=== PATIENT | female | born 1985 | race Hispanic/Latino ===

== ENCOUNTER 2019-02-14 15:10 | Inpatient (IN) | payer MEDICAID ==
--- NOTE | 2019-02-14 16:43 | ED PDOC ---
HPI: Seizure Time Seen by Provider: 02/14/19 15:56 Chief Complaint (Nursing): Seizure Chief Complaint (Provider): Seizure History Per: Patient History/Exam Limitations: no limitations Recent Seizure Activity Began: Just Before Arrival Number Of Seizures: One Associated Symptoms: denies: Bit Tongue, Incontinence Of Urine, Incontinence Of Stool, Injury As A Result Of Seizure Activity Post-ictal Period: No Additional Complaint(s): 34yo female with history of seizures comes to ER for evaluation after she had an unusual seizure like activity. Patient has a history of seizure and is currently being followed by Dr. Schrader and has been taking medications. Patient states she has been off her medications for 4 days due to a scheduled EEG tomorrow. She states this morning while walking to her apartment, she saw flashing bright "strobe lights." She felt dizzy, could not hear things so she sat on a chair; states symptoms lasted for a couple minutes. She reports she came to and did not have a post-ictal state. Patient is currently on her menstrual period and reports cramping. Otherwise, no neurological complaints at this time. Past Medical History Reviewed: Historical Data, Nursing Documentation, Vital Signs Vital Signs: Last Vital Signs Temp 98.4 F 02/14/19 15:14 Pulse 80 02/14/19 15:14 Resp 16 02/14/19 15:14 BP 120/76 02/14/19 15:14 Pulse Ox 98 02/14/19 15:14 Primary Care Provider: Kylee Snyder - Medical History PMH: Anxiety, Asthma, COPD, Depression, Gastrointestinal Ulcer, Gall Bladder Disease (CHOLECYSTECTOMY.), Pancreatitis, Seizures (grand mal 3 years ago) Denies: Bipolar Disorder, Bronchitis, Diabetes, Emphysema, Hepatitis, HIV, HTN, Personality Disorder, Pneumonia, Chronic Kidney Disease, Schizophrenia, Sexually Transmitted Disease, Sleep Apnea - Surgical History Surgical History: Cholecystectomy - Family History Family History: States: Unknown Family Hx - Social History Current smoker - smoking cessation education provided: No Alcohol: None Drugs: Denies - Immunization History Hx Tetanus Toxoid Vaccination: No Hx Influenza Vaccination: No Hx Pneumococcal Vaccination: No - Home Medications Home Medications: Ambulatory Orders Medication Instructions Recorded Buprenorphine HCl/Naloxone HCl 1.5 tab SL DAILY 12/30/18 [Buprenorphin-Naloxon 8-2 mg Sl] Ondansetron [Zofran] 4 mg PO Q8H PRN #9 tab 04/02/19 Biotin 1 tab PO DAILY 02/14/19 Cyanocobalamin [Vitamin B12] 1 tab PO DAILY 02/14/19 Cyclobenzaprine [Flexeril] 10 mg PO Q8 PRN 02/14/19 Gabapentin 300 mg PO Q8 02/14/19 clonazePAM [Klonopin] 0.5 mg PO Q8 02/14/19 Eslicarbazepine Acetate [Aptiom] 1 tab PO HS #21 tablet 02/17/19 - Allergies Allergies/Adverse Reactions: Allergies Allergy/AdvReac Type Severity Reaction Status Date / Time escitalopram oxalate Allergy RASH Verified 12/30/18 18:41 [From Lexapro] FISH Allergy ANAPHYLAXIS Verified 12/30/18 18:41 levetiracetam [From Keppra] Allergy ANAPHYLAXIS Verified 12/30/18 18:41 Review of Systems ROS Statement: Except As Marked, All Systems Reviewed And Found Negative Eyes: Negative for: Vision Change Gastrointestinal: Negative for: Nausea, Vomiting Neurological: Positive for: Seizures. Negative for: Headache Physical Exam - Reviewed Nursing Documentation Reviewed: Yes Vital Signs Reviewed: Yes - Physical Exam Appears: Positive for: Non-toxic, No Acute Distress Head Exam: Positive for: ATRAUMATIC, NORMAL INSPECTION, NORMOCEPHALIC Skin: Positive for: Normal Color Eye Exam: Positive for: Normal appearance, EOMI, PERRL Neck: Positive for: Supple Cardiovascular/Chest: Positive for: Regular Rate, Rhythm. Negative for: Tachycardia Respiratory: Positive for: Normal Breath Sounds. Negative for: Respiratory Distress Gastrointestinal/Abdominal: Positive for: Normal Exam, Soft Back: Positive for: Normal Inspection Extremity: Positive for: Normal ROM. Negative for: Deformity Neurological/Psych: Positive for: Awake, Alert, Normal Tone, Oriented (x 3), Gait (steady). Negative for: Motor/Sensory Deficits - Laboratory Results Result Diagrams: 02/15/19 04:21 02/15/19 04:21 - ECG O2 Sat by Pulse Oximetry: 98 (RA) Pulse Ox Interpretation: Normal Medical Decision Making Medical Decision Making: Atypical seizure activity [address] Schrader, who states patient was supposed to stop taking her medication for 1 day only Recommends MRI Brain for further evaluation, also recommends admission for further workup and scheduled EEG IV Reglan and IV toradol ordered for abdominal cramps Patient to be admitted under Dr. Anthony Scribe Attestation: Documented by Samreen Ken, acting as a scribe for Viki Parish MD. Provider Scribe Attestation: All medical record entries made by the Scribe were at my direction and personally dictated by me. I have reviewed the chart and agree that the record accurately reflects my personal performance of the history, physical exam, medical decision making, and the department course for this patient. I have also personally directed, reviewed, and agree with the discharge instructions and disposition. Disposition - Clinical Impression Clinical Impression: Seizure disorder - Disposition Disposition Time: 16:10 Condition: STABLE
[2019-02-14] MEDS ORDERED: DiphenhydrAMINE 50 mg/ml Inj IVP STA (17:34)
[2019-02-14 17:39] LABS: BASO % 0.3 % (0.0-2.0); EOS # 0.2 K/uL (0.0-0.7); EOS % 2.7 % (0.0-4.0); HEMOGLOBIN 12.8 g/dL (12.0-16.0); LYMPH # 2.4 K/uL (1.0-4.3); LYMPH % 34.8 % (20.0-40.0); MEAN CELL VOLUME 86.2 fl (81.0-99.0); MEAN CORPUSCULAR HEMOGLOBIN 29.5 pg (27.0-31.0); MEAN CORPUSCULAR HGB CONC 34.2 g/dL (33.0-37.0); MEAN PLATELET VOLUME 9.5 fl (7.2-11.7); MONO # 0.6 K/uL (0.0-0.8); NEUT # 3.8 K/uL (1.8-7.0); NEUT % 54.2 % (50.0-75.0); RBC 4.36 Mil/uL (3.80-5.20); RED CELL DISTRIBUTION WIDTH 15.3 % (11.5-14.5)
[2019-02-14] MEDS ORDERED: DiphenhydrAMINE 50 mg/ml Inj ONE (17:39)
[2019-02-14 17:47] LABS: BLOOD UREA NITROGEN 10 mg/dl (7-17); CALCIUM 8.7 mg/dL (8.4-10.2); GFR NON-AFRICAN AMERICAN > 60
--- NOTE | 2019-02-14 18:42 | MRI ---
Date of service: 02/14/2019 PROCEDURE: MRI BRAIN WITHOUT CONTRAST HISTORY: seizure like activity COMPARISON: None available. TECHNIQUE: Multiplanar, multisequence MR images of the brain were obtained without intravenous contrast enhancement. FINDINGS: HEMORRHAGE: None DWI: No evidence of an acute or early subacute infarction. BRAIN PARENCHYMA: Intrinsic signal throughout the porras and white matter structures above below the tentorium appears within normal limits including the brainstem. There is no mass effect, parenchymal edema or loss of the corticomedullary differentiation. Midline brain anatomy appears within normal limits including the corpus callosum, brainstem and craniocervical junction. There is no suspicious extra-axial fluid collection identified. VENTRICLES: Unremarkable. No hydrocephalus. CRANIUM: Unremarkable. ORBITS: Grossly unremarkable. PARANASAL SINUSES/MASTOIDS: Clear VASCULAR SYSTEM: Skull base flow voids intact. OTHER FINDINGS: None. IMPRESSION: Unremarkable non contrast enhanced MRI of the brain.
[2019-02-14 21:33] VITALS: BMI 25.7
[2019-02-15 05:09] LABS: HEMOGLOBIN 12.1 g/dL (12.0-16.0); MEAN CELL VOLUME 86.6 fl (81.0-99.0); MEAN CORPUSCULAR HEMOGLOBIN 29.2 pg (27.0-31.0); MEAN CORPUSCULAR HGB CONC 33.7 g/dL (33.0-37.0); RBC 4.13 Mil/uL (3.80-5.20); RED CELL DISTRIBUTION WIDTH 15.3 % (11.5-14.5)
[2019-02-15] MEDS ORDERED: DiphenhydrAMINE 50 mg/ml Inj IVP STA (05:24)
[2019-02-15 05:32] LABS: ALB/GLOB RATIO 1.7 (1.0-2.1); ALT/SGPT 106 U/L (9-52); AST/SGOT 78 U/L (14-36); BLOOD UREA NITROGEN 10 mg/dl (7-17); CALCIUM 8.5 mg/dL (8.4-10.2); GFR NON-AFRICAN AMERICAN > 60; HDL CHOLESTEROL 45 MG/DL (30-70)
[2019-02-15 05:35] LABS: LDL CHOLESTEROL 78 mg/dL (0-129)
--- NOTE | 2019-02-15 08:18 | CP.PCM.HP ---
History of Present Illness - History of Present Illness History of Present Illness: This is 34 y/o F with PMH of seizures admitted to [facility] for evaluation and treatment of dizziness/near syncope and possible seizure episode. As per patient, she has been f/u with Neurology for her seizures, she stopped taking her optiom 4 days ago due to [facility] DE JESUS VEEG by neurology. Patient reports she was at home and all the sudden she started feeling dizzy, lightheaded, blurred vision and confused for a second but denies any LOC, head trauma or seizures like activities. Reports no hx of any migraine, denies chest pain, SOB, weakness or numbness/tingling. + Current menstrual cycle, + Cramps. Past Medical History: prior seizure x 1, asthma, pancreatitis, and EtOH/polysubstance abuse (quit 4 years ago) Past Surgical History: hernia repair, cholecystectomy, x3 Allergies: lexapro, Fish, keppra Home medications: As per EMR Family History: mother and father both have HTN Social History: Patient admits to occassional cigarette smoking, prior heavy EtOH use with withdrawal and pancreatitis history but quit 4 years ago, admits to prior cocaine use but also quit 4 years ago, reports occassional marijuana smoking [place] [facility] [place] Present on Admission - Present on Admission Any Indicators Present on Admission: No Review of Systems - Constitutional Constitutional: absent: Excessive Sweating, Night Sweats - EENT Eyes: Blurred Vision Ears: Dizziness Nose/Mouth/Throat: absent: Nasal Congestion - Breasts Breasts: absent: Skin Changes - Cardiovascular Cardiovascular: absent: Chest Pain - Respiratory Respiratory: absent: Cough, Dyspnea, Hemoptysis - Gastrointestinal Gastrointestinal: Bloating, Cramping. absent: Abdominal Pain - Genitourinary Genitourinary: absent: Dysuria - Reproductive: Female Reproductive:Female: Currently Menstual - Menstruation Menstruation: Currently Menstual - Musculoskeletal Musculoskeletal: absent: Muscle Cramps, Stiffness, Tingling - Integumentary Integumentary: absent: Bleeding Lesions - Neurological Neurological: Dizziness. absent: Sensory Deficit, Syncope, Tingling, Tremor, Vertigo, Weakness, Other Visual Disturbances - Psychiatric Psychiatric: absent: Anxiety - Hematologic/Lymphatic Hematologic: absent: Easy Bleeding Past Patient History - Infectious Disease Hx of Infectious Diseases: None - Tetanus Immunizations Tetanus Immunization: Up to Date - Past Medical History & Family History Past Medical History?: Yes - Past Social History Alcohol: None Drugs: Denies - CARDIAC Hx Hypertension: No - PULMONARY Hx Asthma: Yes Hx Bronchitis: No Hx Chronic Obstructive Pulmonary Disease (COPD): Yes Hx Emphysema: No Hx Pneumonia: No Hx Sleep Apnea: No - NEUROLOGICAL Hx Neurological Disorder: Yes Hx Seizures: Yes - HEENT Hx HEENT Problems: No - RENAL Hx Chronic Kidney Disease: No - ENDOCRINE/METABOLIC Hx Endocrine Disorders: No - HEMATOLOGICAL/ONCOLOGICAL Hx Human Immunodeficiency Virus (HIV): No - INTEGUMENTARY Hx Dermatological Problems: No - MUSCULOSKELETAL/RHEUMATOLOGICAL Hx Musculoskeletal Disorders: No Hx Falls: Yes - GASTROINTESTINAL Hx Gall Bladder Disease: Yes (CHOLECYSTECTOMY.) Hx Pancreatitis: Yes - GENITOURINARY/GYNECOLOGICAL Hx Sexually Transmitted Disorders: No - PSYCHIATRIC Hx Anxiety: Yes Hx Bipolar Disorder: No Hx Depression: Yes Hx Schizophrenia: No - SURGICAL HISTORY Hx Section: Yes Hx Cholecystectomy: Yes - ANESTHESIA Hx Anesthesia: Yes Hx Anesthesia Reactions: No Hx Malignant Hyperthermia: No Meds Allergies/Adverse Reactions: Allergies Allergy/AdvReac Type Severity Reaction Status Date / Time escitalopram oxalate Allergy RASH Verified 12/30/18 18:41 [From Lexapro] FISH Allergy ANAPHYLAXIS Verified 12/30/18 18:41 levetiracetam [From Keppra] Allergy ANAPHYLAXIS Verified 12/30/18 18:41 Physical Exam - Constitutional Appears: No Acute Distress - Head Exam Head Exam: ATRAUMATIC, NORMAL INSPECTION, NORMOCEPHALIC - Eye Exam Eye Exam: EOMI, Normal appearance, PERRL Pupil Exam: NORMAL ACCOMODATION - ENT Exam ENT Exam: Mucous Membranes Moist - Neck Exam Neck exam: Positive for: Normal Inspection - Respiratory Exam Respiratory Exam: Clear to Auscultation Bilateral, NORMAL BREATHING PATTERN - Cardiovascular Exam Cardiovascular Exam: REGULAR RHYTHM, +S1, +S2 - GI/Abdominal Exam GI & Abdominal Exam: Normal Bowel Sounds, Soft. absent: Tenderness - Extremities Exam Extremities exam: Positive for: normal inspection - Back Exam Back exam: NORMAL INSPECTION. absent: CVA tenderness (L), CVA tenderness (R) - Neurological Exam Neurological exam: Alert, CN II-XII Intact, Normal Gait, Oriented x3, Reflexes Normal - Psychiatric Exam Psychiatric exam: Normal Affect - Skin Skin Exam: Normal Color Results - Vital Signs Recent Vital Signs: Last Vital Signs Temp 98.4 F 02/15/19 08:03 Pulse 57 L 02/15/19 08:03 Resp 10 L 02/15/19 08:03 BP 98/62 L 02/15/19 08:03 Pulse Ox 99 02/15/19 08:03 - Labs Result Diagrams: 02/15/19 04:21 02/15/19 04:21 Labs: Laboratory Results - last 24 hr 02/14/19 02/14/19 02/15/19 17:00 17:00 04:21 WBC 7.0 6.0 RBC 4.36 4.13 Hgb 12.8 12.1 Hct 37.6 35.7 MCV 86.2 86.6 MCH 29.5 29.2 MCHC 34.2 33.7 RDW 15.3 H 15.3 H Plt Count 198 186 MPV 9.5 Neut % (Auto) 54.2 Lymph % (Auto) 34.8 [place] % (Auto) 8.0 Eos % (Auto) 2.7 Baso % (Auto) 0.3 Neut # (Auto) 3.8 Lymph # (Auto) 2.4 [place] # (Auto) 0.6 Eos # (Auto) 0.2 Baso # (Auto) 0.0 Sodium 137 Potassium 3.9 Chloride 105 Carbon Dioxide 24 Anion Gap 12 BUN 10 Creatinine 0.6 L Est GFR ( Amer) > 60 Est GFR (Non-Af Amer) > 60 Random Glucose 86 Calcium 8.7 Total Bilirubin AST ALT Alkaline Phosphatase Total Protein Albumin Globulin Albumin/Globulin Ratio Triglycerides Cholesterol LDL Cholesterol Direct HDL Cholesterol Vitamin B12 TSH 3rd Generation 02/15/19 04:21 WBC RBC Hgb Hct MCV MCH MCHC RDW Plt Count MPV Neut % (Auto) Lymph % (Auto) [place] % (Auto) Eos % (Auto) Baso % (Auto) Neut # (Auto) Lymph # (Auto) [place] # (Auto) Eos # (Auto) Baso # (Auto) Sodium 139 Potassium 3.7 Chloride 105 Carbon Dioxide 26 Anion Gap 12 BUN 10 Creatinine 0.5 L Est GFR ( Amer) > 60 Est GFR (Non-Af Amer) > 60 Random Glucose 86 Calcium 8.5 Total Bilirubin 0.5 AST 78 H D ALT 106 H Alkaline Phosphatase 71 Total Protein 6.4 Albumin 4.0 Globulin 2.4 Albumin/Globulin Ratio 1.7 Triglycerides 70 Cholesterol 143 LDL Cholesterol Direct 78 HDL Cholesterol 45 Vitamin B12 942 H TSH 3rd Generation 1.98 Assessment & Plan - Assessment and Plan (Free Text) Assessment: A/P: 34 y/o F with PMH of seizures admitted to [facility] for evaluation and treatment of dizziness/near syncope and possible seizure episode. Dizziness/near syncope and possible seizure episode - Consult Dr. Schrader, f/u recommendations - EKG: Sinus dipak - Order EEG - Order Brain MRI - C/w Klonopin PRN, Gabapentin 300 TID - Pain management as ordered - C/w regular diet - C/w DVT PPX Case discussed and patient seen with with Dr. Anthony, agrees with plan
[2019-02-15] MEDS: CYANOCOBALAMIN 500 MCG TAB PO SCH (10:40)
--- NOTE | 2019-02-15 11:30 | CARD ---
APPROVED REPORT Date of service: 02/14/2019 EKG Measurement Heart [id number] <Conclusion> Sinus bradycardia Otherwise normal ECG
--- NOTE | 2019-02-15 11:55 | CP.PCM.CON ---
History of Present Illness - History of Present Illness History of Present Illness: 34 yr old woman who is my patient from clinic, who has had several gtcs over the last several years. 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 When she stopped using these drugs and went through withdrawal, she experienced her first GTC, followed by 3 in 3 years. Her most recent episode warranted her to seek my consultation, and she was on topamax at that time. She stated that she had an aura of flashing lights, and confusion. She also complained of severe insomnia, and anxiety. I started her on aptiom 400 mg po nightly, which she was doing well on, and she discontinued it 5 days ago. Yesterday, she had a typical spell of flashing lights and confusion. ROS: malaise, fatigue, insomnia. PMH/PSH: COPD, IBS, pancreatitis, liver cirrhosis with normal LFTs FH/SH: tobacco, marijuana. , has several children. All: keppra On exam: Normal neurological examination. AAOX3. Cn2-12 normal. EOMI. motor, sensory: normal. gait normal. +2 dtr ul and ll bl. Toes downgoing. no clonus. Past Patient History - Infectious Disease Hx of Infectious Diseases: None - Tetanus Immunizations Tetanus Immunization: Up to Date - Past Medical History & Family History Past Medical History?: Yes - Past Social History Alcohol: None Drugs: Denies - CARDIAC Hx Hypertension: No - PULMONARY Hx Asthma: Yes Hx Bronchitis: No Hx Chronic Obstructive Pulmonary Disease (COPD): Yes Hx Emphysema: No Hx Pneumonia: No Hx Sleep Apnea: No - NEUROLOGICAL Hx Neurological Disorder: Yes Hx Seizures: Yes - HEENT Hx HEENT Problems: No - RENAL Hx Chronic Kidney Disease: No - ENDOCRINE/METABOLIC Hx Endocrine Disorders: No - HEMATOLOGICAL/ONCOLOGICAL Hx Human Immunodeficiency Virus (HIV): No - INTEGUMENTARY Hx Dermatological Problems: No - MUSCULOSKELETAL/RHEUMATOLOGICAL Hx Musculoskeletal Disorders: No Hx Falls: Yes - GASTROINTESTINAL Hx Gall Bladder Disease: Yes (CHOLECYSTECTOMY.) Hx Pancreatitis: Yes - GENITOURINARY/GYNECOLOGICAL Hx Sexually Transmitted Disorders: No - PSYCHIATRIC Hx Anxiety: Yes Hx Bipolar Disorder: No Hx Depression: Yes Hx Schizophrenia: No - SURGICAL HISTORY Hx Section: Yes Hx Cholecystectomy: Yes - ANESTHESIA Hx Anesthesia: Yes Hx Anesthesia Reactions: No Hx Malignant Hyperthermia: No Meds Allergies/Adverse Reactions: Allergies Allergy/AdvReac Type Severity Reaction Status Date / Time escitalopram oxalate Allergy RASH Verified 12/30/18 18:41 [From Lexapro] FISH Allergy ANAPHYLAXIS Verified 12/30/18 18:41 levetiracetam [From Keppra] Allergy ANAPHYLAXIS Verified 12/30/18 18:41 - Medications Medications: Current Medications Acetaminophen (Tylenol 325mg Tab) 650 mg PO Q6 PRN PRN Reason: Pain, moderate (4-7) Clonazepam (Klonopin) 0.5 mg PO Q8H [facility] Last Admin: 02/15/19 10:42 Dose: 0.5 mg Cyanocobalamin (Vitamin B12) 500 mcg PO DAILY [facility] Last Admin: 02/15/19 10:40 Dose: 500 mcg Cyclobenzaprine HCl (Flexeril) 10 mg PO Q8 PRN PRN Reason: Muscle spasm Last Admin: 02/15/19 10:39 Dose: 10 mg Gabapentin (Neurontin) 300 mg PO TID [facility] Last Admin: 02/15/19 10:40 Dose: 300 mg Ketorolac Tromethamine (Toradol) 15 mg IVP Q6 PRN PRN Reason: Pain, severe (8-10) Nicotine (Nicoderm Cq) 1 patch TD DAILY [facility] Last Admin: 02/15/19 10:40 Dose: 1 patch Ondansetron HCl (Zofran Tab) 4 mg PO Q8 [facility] Last Admin: 02/15/19 10:40 Dose: 4 mg Results - Vital Signs Recent Vital Signs: Last Vital Signs Temp 98.4 F 02/15/19 08:03 Pulse 57 L 02/15/19 08:03 Resp 10 L 02/15/19 08:03 BP 98/62 L 02/15/19 08:03 Pulse Ox 99 02/15/19 08:03 - Labs Result Diagrams: 02/15/19 04:21 02/15/19 04:21 Labs: Laboratory Results - last 24 hr 02/14/19 02/14/19 02/15/19 17:00 17:00 04:21 WBC 7.0 6.0 RBC 4.36 4.13 Hgb 12.8 12.1 Hct 37.6 35.7 MCV 86.2 86.6 MCH 29.5 29.2 MCHC 34.2 33.7 RDW 15.3 H 15.3 H Plt Count 198 186 MPV 9.5 Neut % (Auto) 54.2 Lymph % (Auto) 34.8 [place] % (Auto) 8.0 Eos % (Auto) 2.7 Baso % (Auto) 0.3 Neut # (Auto) 3.8 Lymph # (Auto) 2.4 [place] # (Auto) 0.6 Eos # (Auto) 0.2 Baso # (Auto) 0.0 Sodium 137 Potassium 3.9 Chloride 105 Carbon Dioxide 24 Anion Gap 12 BUN 10 Creatinine 0.6 L Est GFR ( Amer) > 60 Est GFR (Non-Af Amer) > 60 Random Glucose 86 Calcium 8.7 Total Bilirubin AST ALT Alkaline Phosphatase Total Protein Albumin Globulin Albumin/Globulin Ratio Triglycerides Cholesterol LDL Cholesterol Direct HDL Cholesterol Vitamin B12 TSH 3rd Generation 02/15/19 04:21 WBC RBC Hgb Hct MCV MCH MCHC RDW Plt Count MPV Neut % (Auto) Lymph % (Auto) [place] % (Auto) Eos % (Auto) Baso % (Auto) Neut # (Auto) Lymph # (Auto) [place] # (Auto) Eos # (Auto) Baso # (Auto) Sodium 139 Potassium 3.7 Chloride 105 Carbon Dioxide 26 Anion Gap 12 BUN 10 Creatinine 0.5 L Est GFR ( Amer) > 60 Est GFR (Non-Af Amer) > 60 Random Glucose 86 Calcium 8.5 Total Bilirubin 0.5 AST 78 H D ALT 106 H Alkaline Phosphatase 71 Total Protein 6.4 Albumin 4.0 Globulin 2.4 Albumin/Globulin Ratio 1.7 Triglycerides 70 Cholesterol 143 LDL Cholesterol Direct 78 HDL Cholesterol 45 Vitamin B12 942 H TSH 3rd Generation 1.98 Assessment & Plan - Assessment and Plan (Free Text) Assessment: 34 yr old woman with epilepsy who is here for veeg to evaluate her spells of possible complex partial epilepsy. Plan; 1. VEEG for 48 hours. [address] blackman Neurology
[2019-02-15] MEDS: DiphenhydrAMINE 50 mg/ml Inj IVP PRN (17:55)
[2019-02-16] MEDS: DiphenhydrAMINE 50 mg/ml Inj IVP PRN ×4 (02:59→21:05)
--- NOTE | 2019-02-16 07:21 | CP.PCM.PN ---
Subjective - Date & Time of Evaluation Date of Evaluation: 02/16/19 Time of Evaluation: 09:00 - Subjective Subjective: Patient seen and examined this morning with Dr. Morgan. NAD, no acute event overnight. Patient denies any dizziness, SOB, chest pain, dysuria or weakness. C/w VEEG for 48 hours as per Neuro team Objective - Vital Signs/Intake and Output Vital Signs (last 24 hours): Temp Pulse Resp BP Pulse Ox 98.9 F 69 15 81/44 L 94 L 02/15/19 21:00 02/15/19 21:00 02/15/19 21:00 02/15/19 21:00 02/15/19 21:00 Intake and Output: 02/16/19 02/16/19 06:59 18:59 Intake Total 0 Balance 0 - Medications Medications: Current Medications Acetaminophen (Tylenol 325mg Tab) 650 mg PO Q6 PRN PRN Reason: Pain, moderate (4-7) Clonazepam (Klonopin) 0.5 mg PO Q8H [facility] Last Admin: 02/16/19 03:03 Dose: 0.5 mg Cyanocobalamin (Vitamin B12) 500 mcg PO DAILY [facility] Last Admin: 02/15/19 10:40 Dose: 500 mcg Cyclobenzaprine HCl (Flexeril) 10 mg PO Q8 PRN PRN Reason: Muscle spasm Last Admin: 02/15/19 10:39 Dose: 10 mg Diphenhydramine HCl (Benadryl) 25 mg IVP Q6 PRN PRN Reason: Itching / Pruritus Last Admin: 02/16/19 02:59 Dose: 25 mg Enoxaparin Sodium (Lovenox) 40 mg SC DAILY [facility]; Protocol Gabapentin (Neurontin) 300 mg PO TID [facility] Last Admin: 02/15/19 17:47 Dose: 300 mg Ketorolac Tromethamine (Toradol) 15 mg IVP Q6 PRN PRN Reason: Pain, severe (8-10) Last Admin: 02/16/19 03:00 Dose: 15 mg Nicotine (Nicoderm Cq) 1 patch TD DAILY [facility] Last Admin: 02/15/19 10:40 Dose: 1 patch Ondansetron HCl (Zofran Tab) 4 mg PO Q8 [facility] Last Admin: 02/16/19 03:05 Dose: Not Given - Labs Labs: 02/15/19 04:21 02/15/19 04:21 - Constitutional Appears: No Acute Distress - Head Exam Head Exam: NORMAL INSPECTION - Eye Exam Eye Exam: EOMI, Normal appearance, PERRL Pupil Exam: NORMAL ACCOMODATION - ENT Exam ENT Exam: Mucous Membranes Moist - Neck Exam Neck Exam: Normal Inspection - Respiratory Exam Respiratory Exam: Clear to Ausculation Bilateral, NORMAL BREATHING PATTERN - Cardiovascular Exam Cardiovascular Exam: REGULAR RHYTHM, +S1, +S2 - GI/Abdominal Exam GI & Abdominal Exam: Soft, Normal Bowel Sounds. absent: Tenderness - Extremities Exam Extremities Exam: Normal Inspection. absent: Tenderness - Back Exam Back Exam: NORMAL INSPECTION. absent: CVA tenderness (L), CVA tenderness (R) - Neurological Exam Neurological Exam: Alert, Awake, Normal Gait, Oriented x3 - Psychiatric Exam Psychiatric exam: Normal Affect - Skin Skin Exam: Normal Color Assessment and Plan - Assessment and Plan (Free Text) Assessment: A/P: 34 y/o F with PMH of seizures admitted to [facility] for evaluation and treatment of dizziness/near syncope and possible seizure episode. Dizziness/near syncope and possible seizure episode - Consult Dr. Schrader, recommendations appreciated - EKG: Sinus dipak, Brain MRI: no acute changes - C/w 48 hrs VEEG - C/w Klonopin PRN, Gabapentin 300 TID - Pain management as ordered - C/w regular diet - C/w DVT PPX Case discussed with Dr. Morgan, agrees with plan.
[2019-02-16] MEDS: Enoxaparin 40 mg Syringe SC SCH (08:50)
[2019-02-16] MEDS: CYANOCOBALAMIN 500 MCG TAB PO SCH (08:51)
[2019-02-16] MEDS ORDERED: DiphenhydrAMINE 50 mg/ml Inj IVP ONE (16:12)
[2019-02-16] MEDS ORDERED: DiphenhydrAMINE 50 mg/ml Inj IVP STA (21:27)
[2019-02-17] MEDS: DiphenhydrAMINE 50 mg/ml Inj IVP PRN ×3 (03:07→15:09)
[2019-02-17] MEDS: Enoxaparin 40 mg Syringe SC SCH (09:01)
[2019-02-17] MEDS: CYANOCOBALAMIN 500 MCG TAB PO SCH (09:04)
--- NOTE | 2019-02-17 11:19 | CP.PCM.DIS ---
Provider - Provider Date of Admission: 02/14/19 16:31 Attending physician: Anurag Anthony MD Primary care physician: Dr. Schrader Consults: 02/14/19 21:56 Neurology Consult Routine Comment: Consulting Provider: Ruben Schrader Consulting Physician: Ruben Schrader Reason for Consult: Diagnosis: Seizure 02/15/19 08:28 Case Management Referral Routine Comment: Physician Instructions: Reason For Exam: evaluate Reason for Referral: Denitrator Operator Eval Social Work Referral Routine Comment: per protocol Physician Instructions: Reason For Exam: evaluate Time Spent in preparation of Discharge (in minutes): 40 Diagnosis - Discharge Diagnosis (1) Dizziness Status: Acute (2) Near syncope Status: Acute Hospital Course - Lab Results Lab Results: Micro Results 02/14/19 00:00 Nose MRSA Culture (Admit) - Final MRSA NOT DETECTED Most Recent Lab Values WBC 6.0 K/uL (4.8-10.8) 02/15/19 04:21 RBC 4.13 Mil/uL (3.80-5.20) 02/15/19 04:21 Hgb 12.1 g/dL (12.0-16.0) 02/15/19 04:21 Hct 35.7 % (34.0-47.0) 02/15/19 04:21 MCV 86.6 fl (81.0-99.0) 02/15/19 04:21 MCH 29.2 pg (27.0-31.0) 02/15/19 04:21 MCHC 33.7 g/dL (33.0-37.0) 02/15/19 04:21 RDW 15.3 % (11.5-14.5) H 02/15/19 04:21 Plt Count 186 K/uL (130-400) 02/15/19 04:21 MPV 9.5 fl (7.2-11.7) 02/14/19 17:00 Neut % (Auto) 54.2 % (50.0-75.0) 02/14/19 17:00 Lymph % (Auto) 34.8 % (20.0-40.0) 02/14/19 17:00 Luna % (Auto) 8.0 % (0.0-10.0) 02/14/19 17:00 Eos % (Auto) 2.7 % (0.0-4.0) 02/14/19 17:00 Baso % (Auto) 0.3 % (0.0-2.0) 02/14/19 17:00 Neut # (Auto) 3.8 K/uL (1.8-7.0) 02/14/19 17:00 Lymph # (Auto) 2.4 K/uL (1.0-4.3) 02/14/19 17:00 Luna # (Auto) 0.6 K/uL (0.0-0.8) 02/14/19 17:00 Eos # (Auto) 0.2 K/uL (0.0-0.7) 02/14/19 17:00 Baso # (Auto) 0.0 K/uL (0.0-0.2) 02/14/19 17:00 Sodium 139 mmol/l (132-148) 02/15/19 04:21 Potassium 3.7 MMOL/L (3.6-5.0) 02/15/19 04:21 Chloride 105 mmol/L (98-107) 02/15/19 04:21 Carbon Dioxide 26 mmol/L (22-30) 02/15/19 04:21 Anion Gap 12 (10-20) 02/15/19 04:21 BUN 10 mg/dl (7-17) 02/15/19 04:21 Creatinine 0.5 mg/dl (0.7-1.2) L 02/15/19 04:21 Est GFR ( Amer) > 60 02/15/19 04:21 Est GFR (Non-Af Amer) > 60 02/15/19 04:21 POC Glucose (mg/dL) 120 mg/dL (65-110) H 02/15/19 11:19 Random Glucose 86 mg/dL (65-105) 02/15/19 04:21 Hemoglobin A1c 4.9 % (4.2-6.5) 02/15/19 04:21 Calcium 8.5 mg/dL (8.4-10.2) 02/15/19 04:21 Total Bilirubin 0.5 mg/dl (0.2-1.3) 02/15/19 04:21 AST 78 U/L (14-36) H D 02/15/19 04:21 ALT 106 U/L (9-52) H 02/15/19 04:21 Alkaline Phosphatase 71 U/L (38-126) 02/15/19 04:21 Total Protein 6.4 G/DL (6.3-8.2) 02/15/19 04:21 Albumin 4.0 g/dL (3.5-5.0) 02/15/19 04:21 Globulin 2.4 gm/dL (2.2-3.9) 02/15/19 04:21 Albumin/Globulin Ratio 1.7 (1.0-2.1) 02/15/19 04:21 Triglycerides 70 mg/DL (0-149) 02/15/19 04:21 Cholesterol 143 mg/dL (0-199) 02/15/19 04:21 LDL Cholesterol Direct 78 mg/dL (0-129) 02/15/19 04:21 HDL Cholesterol 45 MG/DL (30-70) 02/15/19 04:21 Vitamin B12 942 pg/mL (239-931) H 02/15/19 04:21 TSH 3rd Generation 1.98 mIU/ML (0.46-4.68) 02/15/19 04:21 - Hospital Course Hospital Course: 34 y/o F with PMH of seizures admitted to [facility] for evaluation and treatment of dizziness/near syncope and possible seizure episode. As per patient, she has been f/u with Neurology for her seizures, she stopped taking her optiom 4 days ago due to JOSE DE JESUS VEEG by neurology. Patient reports she was at home and all the sudden she started feeling dizzy, lightheaded, blurred vision and confused for a second. After admission pateint was seen by Neurology Dr. Schrader, Brain MRI: No acute findings, VEEG for 48 hours: No seizures. Patient is cleared by Neuro to d/c home with close f/u with neuro and PMD. Patient understands and agrees with plan. RX: Aptiom 400 mg PO QHS sent to the pharmacy Discharge Exam - Head Exam Head Exam: NORMAL INSPECTION - Eye Exam Eye Exam: EOMI, Normal appearance, PERRL Pupil Exam: NORMAL ACCOMODATION - ENT Exam ENT Exam: Mucous Membranes Moist - Neck Exam Neck exam: Normal Inspection - Respiratory Exam Respiratory Exam: Clear to PA & Lateral, NORMAL BREATHING PATTERN, UNREMARKABLE - Cardiovascular Exam Cardiovascular Exam: REGULAR RHYTHM, +S1, +S2 - GI/Abdominal Exam GI & Abdominal Exam: Normal Bowel Sounds, Soft. absent: Tenderness - Extremities Exam Extremities exam: full ROM - Back Exam Back exam: absent: CVA tenderness (L), CVA tenderness (R) - Neurological Exam Neurological exam: Alert, CN II-XII Intact, Normal Gait, Oriented x3, Reflexes Normal - Psychiatric Exam Psychiatric exam: Normal Affect - Skin Skin Exam: Dry, Intact, Normal Color, Warm Discharge Plan - Discharge Medications Prescriptions: Eslicarbazepine Acetate [Aptiom] 1 tab PO HS #21 tablet - Follow Up Plan Condition: STABLE Disposition: HOME/ ROUTINE Patient education suggested?: Yes Instructions: Dizziness, Nonvertigo, (DC) Additional Instructions: RX: Aptiom 400 mg PO QHS sent to the pharmacy F/u PMD and Neuro in 1 week Referrals: Ruben Schrader MD [Medical Doctor] -
--- NOTE | 2019-02-17 11:23 | CP.PCM.PN ---
Subjective - Date & Time of Evaluation Date of Evaluation: 02/17/19 Time of Evaluation: 11:23 - Subjective Subjective: Neuro Follow-Up Note: Ms. Tee was evaluated this morning in the ICU. She is feeling well today and offers no complaints. No seizure activity since admission. ROS is unremarkable. Objective - Vital Signs/Intake and Output Vital Signs (last 24 hours): Temp Pulse Resp BP Pulse Ox 98.5 F 54 L 96 H 96/70 L 96 02/17/19 08:00 02/17/19 09:00 02/17/19 08:00 02/17/19 08:00 02/17/19 06:36 - Medications Medications: Current Medications Acetaminophen (Tylenol 325mg Tab) 650 mg PO Q6 PRN PRN Reason: Pain, moderate (4-7) Clonazepam (Klonopin) 0.5 mg PO Q8H [facility] Last Admin: 02/17/19 09:11 Dose: 0.5 mg Cyanocobalamin (Vitamin B12) 500 mcg PO DAILY [facility] Last Admin: 02/17/19 09:04 Dose: 500 mcg Cyclobenzaprine HCl (Flexeril) 10 mg PO Q8 PRN PRN Reason: Muscle spasm Last Admin: 02/15/19 10:39 Dose: 10 mg Diphenhydramine HCl (Benadryl) 25 mg IVP Q6 PRN PRN Reason: Itching / Pruritus Last Admin: 02/17/19 09:32 Dose: 25 mg Enoxaparin Sodium (Lovenox) 40 mg SC DAILY [facility]; Protocol Last Admin: 02/17/19 09:01 Dose: 40 mg Gabapentin (Neurontin) 300 mg PO TID [facility] Last Admin: 02/17/19 09:01 Dose: 300 mg Ketorolac Tromethamine (Toradol) 15 mg IVP Q6 PRN PRN Reason: Pain, severe (8-10) Last Admin: 02/17/19 09:02 Dose: 15 mg Nicotine (Nicoderm Cq) 1 patch TD DAILY [facility] Last Admin: 02/17/19 09:01 Dose: 1 patch Ondansetron HCl (Zofran Tab) 4 mg PO Q8 [facility] Last Admin: 02/17/19 09:04 Dose: Not Given - Labs Labs: 02/15/19 04:21 02/15/19 04:21 - Constitutional Appears: Well, Non-toxic, No Acute Distress - Head Exam Head Exam: ATRAUMATIC, NORMAL INSPECTION, NORMOCEPHALIC - Eye Exam Eye Exam: EOMI, Normal appearance, PERRL Pupil Exam: NORMAL ACCOMODATION, PERRL - ENT Exam ENT Exam: Mucous Membranes Moist, Normal Exam - Neck Exam Neck Exam: Full ROM, Normal Inspection - Respiratory Exam Respiratory Exam: NORMAL BREATHING PATTERN - Extremities Exam Extremities Exam: Full ROM. absent: Calf Tenderness, Pedal Edema - Neurological Exam Neurological Exam: Alert, Awake, CN II-XII Intact, Normal Gait, Oriented x3, Reflexes Normal Neuro motor strength exam: Left Upper Extremity: 5, Right Upper Extremity: 5, Left Lower Extremity: 5, Right Lower Extremity: 5 - Psychiatric Exam Psychiatric exam: Normal Affect, Normal Mood - Skin Skin Exam: Dry, Intact, Normal Color Assessment and Plan (1) Seizure Assessment & Plan: -Pt is cleared from neurological standpoint for d/c home today. -She is to follow up with Dr. Schrader within 2 weeks in the office. -Continue Aptiom [address] Schrader will bring samples to the pt prior to d/c; Rx called into her pharmacy, med is not covered by her insurance and will cost approx $750/3 week supply. -Discussed plan with pt, nursing staff, and attending. Thank you for this consultation. Rosio Simmons, HANNY, GLOBAL TRANSPORTATION MANAGER d/w Dr. Schrader Status: Acute
[2019-02-17 12:39] VITALS: O2SAT 96
--- NOTE | 2019-02-17 12:40 | CP.PCM.PN ---
Subjective - Date & Time of Evaluation Date of Evaluation: 02/16/19 Time of Evaluation: 14:00 - Subjective Subjective: MIss Tee is doing well with no seizures. EEG: normal, with no interictal discharges no subclinical events noted. ROS: nothing contributory ON exam: Normal neurological examination. Objective - Vital Signs/Intake and Output Vital Signs (last 24 hours): Temp Pulse Resp BP Pulse Ox 98.5 F 54 L 96 H 96/70 L 98 02/17/19 08:00 02/17/19 09:00 02/17/19 08:00 02/17/19 08:00 02/17/19 12:14 - Medications Medications: Current Medications Acetaminophen (Tylenol 325mg Tab) 650 mg PO Q6 PRN PRN Reason: Pain, moderate (4-7) Clonazepam (Klonopin) 0.5 mg PO Q8H [facility] Last Admin: 02/17/19 09:11 Dose: 0.5 mg Cyanocobalamin (Vitamin B12) 500 mcg PO DAILY [facility] Last Admin: 02/17/19 09:04 Dose: 500 mcg Cyclobenzaprine HCl (Flexeril) 10 mg PO Q8 PRN PRN Reason: Muscle spasm Last Admin: 02/15/19 10:39 Dose: 10 mg Diphenhydramine HCl (Benadryl) 25 mg IVP Q6 PRN PRN Reason: Itching / Pruritus Last Admin: 02/17/19 09:32 Dose: 25 mg Enoxaparin Sodium (Lovenox) 40 mg SC DAILY [facility]; Protocol Last Admin: 02/17/19 09:01 Dose: 40 mg Gabapentin (Neurontin) 300 mg PO TID [facility] Last Admin: 02/17/19 09:01 Dose: 300 mg Ketorolac Tromethamine (Toradol) 15 mg IVP Q6 PRN PRN Reason: Pain, severe (8-10) Last Admin: 02/17/19 09:02 Dose: 15 mg Nicotine (Nicoderm Cq) 1 patch TD DAILY [facility] Last Admin: 02/17/19 09:01 Dose: 1 patch Ondansetron HCl (Zofran Tab) 4 mg PO Q8 [facility] Last Admin: 02/17/19 09:04 Dose: Not Given - Labs Labs: 02/15/19 04:21 02/15/19 04:21 Assessment and Plan - Assessment and Plan (Free Text) Assessment: EEG: Background rhythm of 8 hz, reactive, symmetric, attenuating to eye opening. No interictal discharges, no seizures noted. Normal sleep and drowsiness noted. A/P: 34 yr old woman with possible non epileptic events. I will continue monitoring and decide re: continuing aptiom.
--- NOTE | 2019-02-17 15:30 | PQF ---
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 Thank you. REVIEWER QUERY TEXT: Documentation Clarification Your help is requested in clarifying the type of Seizure if known: i.e OR: Unable to determine OR: Other explanation of clinical findings Localization -related idiopathic epilepsy -Localization-related symptomatic epilepsy with simple partial seizures -Localization-related symptomatic epilepsy with complex partial seizures -General idiopathic epilepsy -Absence epileptic syndrome (includes childhood) -Other generalized epilepsy (includes Grand mal seizures) -Epileptic seizures related to external causes - video EEG report pending 02/17 FIBER GLASS WORKER progress note: includes: Seizure: -She is to follow up with Dr. Schrader within 2 weeks in the off ice. -Continue Aptiom 400 mg PO QHS. The patient's Clinical Indicators include: --- Query created by: Shavon Lopez on 02/17/2019 1:03 PM Electronically signed by: Rosio Simmons APN 02/17/2019 3:27 PM
[2019-02-17 16:25] VITALS: BP 90/46; PULSE 53; RESP 12; TEMP 98.4
--- NOTE | 2019-02-20 13:22 | PQF ---
PROVIDER RESPONSE TEXT: Patient was admitted for dizziness and near syncope Past medical hx positive for Seizures so r/o seizures REVIEWER QUERY TEXT: Condition Necessitating Admission 2 (two) queries as follows: Please clarify the medical condition necessitating admission: Etiology of Syncope and dizziness if kn own? In agreement with Neurology diagnosis of Seizure as listed in the 02/17 progress note. OR: Other Explanation of clinical findings 02/16 Resident ISigned progress note: seizures admitted to [facility] for evaluation and treatment of dizzin ess/near syncope and possible seizure episode. -Dizziness/near syncope and possible seizure episode -- Consult Dr. Schrader, recommendations appreciated - EKG: Sinus dipak, Brain MRI: no acute changes - C/w 48 hrs VEEG - C/w Klonopin PRN, Gabapentin 300 TID - Pain management as ordered 02/16 Neuro note: EEG: Background rhythm of 8 hz, reactive, symmetric, attenuating to eye opening. No interictal discharges, no seizures noted.Normal sleep and drowsiness noted. 34 yr old woman with possible non epileptic events.I will continue monitoring and decide re: continuing aptiom. The patient's Clinical Indicators include: -- Query created by: Shavon Lopez on 02/17/2019 1:19 PM Electronically signed by: Roselia Bennett 02/20/2019 1:18 PM
== END 2019-02-17 19:00 | disposition home or self-care (01) | DRG 890 ==
LOC: H.ER 15:10 → H.ERHOLD 16:31 → H.ICU/CCU 21:40
PROVIDERS: ADMIT Internal Medicine; ATTEND Internal Medicine
DX: G40.009 Localization-related (focal) (partial) idiopathic epilepsy and epileptic syndromes with seizures of localized onset, not intractable, without status epilepticus (principal); F32.9 Major depressive disorder, single episode, unspecified; F41.9 Anxiety disorder, unspecified; F17.210 Nicotine dependence, cigarettes, uncomplicated; Z87.11 Personal history of peptic ulcer disease; Z91.013 Allergy to seafood